=== PATIENT | female | born 1995 ===

== ENCOUNTER 2023-06-15 07:05 | Inpatient (IN) ==
[2023-06-15] MEDS ORDERED: Nalbuphine 10 MG/ML 1 ML VIAL IV PRN (08:22)
[2023-06-15] MEDS ORDERED: Lidocaine 1% VIAL 10 MG/ML 30 ML VIAL INJ PRN (08:22)
[2023-06-15] MEDS ORDERED: Prochlorperazine 5 mg/ml 2 ml VIAL (10 mg) IV PRN (08:22)
[2023-06-15] MEDS ORDERED: Oxytocin in LR 20,000 MILLI.UNIT/1,000 ML BAG IV SCH (08:25)
[2023-06-15 09:20] LABS: Urine Benzodiazepine Screen None Detected (None Detect); Urine Cannabinoids Screen None Detected (None Detect); Urine Opiates Screen None Detected (None Detect)
[2023-06-15 12:03] LABS: ABS Lymphocytes 1.7 10^3/uL (1.0-4.8); ABS Monocytes 0.6 10^3/uL (0.0-0.9); ABS Neutrophils 11.4 10^3/uL (1.5-7.6); ABS Nucleated RBC 0.01 10^3/ul; Eosinophil % 0.1 %; Hematocrit 40.4 % (35-45); Hemoglobin 13.7 g/dL (11.5-14.3); Lymphocyte % 12.6 %; Mean Corpuscular Hemoglobin 29.7 pg (27-33); Mean Corpuscular Volume 87.2 fL (80-97); Mean Platelet Volume 8.8 fL (7.5-11.2); Platelet Count 207 10^3/uL (150-450); Red Blood Count 4.63 10^6/uL (3.63-4.92); Red Cell Distribution Width 14.7 % (12-17); White Blood Count 13.8 10^3/uL (3.8-11.8)
[2023-06-15 13:07] LABS: HIV 4th Generation Nonreactive (Nonreactive)
[2023-06-15] MEDS: Lactated Ringers 1000 ml BAG 1,000 ML IV ONE (13:32)
[2023-06-15] MEDS: Oxytocin in LR 20,000 MILLI.UNIT/1,000 ML BAG IV SCH (23:38)
[2023-06-16] MEDS ORDERED: Glycerin ADULT 2.4 gm SUPP PR PRN (00:21)
[2023-06-16] MEDS ORDERED: Lactated Ringers 1000 ml BAG 1,000 ML IV SCH (01:00)
[2023-06-16 11:44] LABS: ABS Basophils 0.1 10^3/uL (0.0-0.1); ABS Lymphocytes 2.2 10^3/uL (1.0-4.8); ABS Monocytes 0.8 10^3/uL (0.0-0.9); ABS Neutrophils 11.8 10^3/uL (1.5-7.6); ABS Nucleated RBC 0.01 10^3/ul; Eosinophil % 0.1 %; Hematocrit 35.7 % (35-45); Hemoglobin 12.3 g/dL (11.5-14.3); Mean Corpuscular Hemoglobin 30.2 pg (27-33); Mean Corpuscular Hgb Conc 34.6 g/dL (31-36); Mean Corpuscular Volume 87.4 fL (80-97); Mean Platelet Volume 8.9 fL (7.5-11.2); Platelet Count 182 10^3/uL (150-450); Red Blood Count 4.08 10^6/uL (3.63-4.92); Red Cell Distribution Width 14.8 % (12-17); White Blood Count 14.9 10^3/uL (3.8-11.8)
[2023-06-16] MEDS: Buffered Lidocaine 1% SYRIN 1 ml INTRADERM ONE (15:24)
[2023-06-16] MEDS: OBEPIDURAL (200 ML) 0 ML EPIDURAL ONE (15:25)
[2023-06-16] MEDS: Lactated Ringers 1000 ml BAG 1,000 ML IV SCH (15:25)
[2023-06-16] MEDS: Lidocaine 1.5% EPI 1:200,000 30 ML SDV ONE (15:25)
[2023-06-16] MEDS: fentaNYL 100 mcg/2 ml 50 MCG/ML VIAL ONE (15:25)
[2023-06-16] MEDS: Bupivacaine 0.25% SDV PF 10 ML VIAL INJ ONE (15:25)
[2023-06-16] MEDS: Lidocaine 2% JELLY 6 ML Topical TOPICAL ONE ×2 (15:26)
[2023-06-17 09:48] VITALS: BP 117/68
[2023-06-17] MEDS: Dibucaine 1% OINT 28.35 GM TUBE PR PRN (10:33)
[2023-06-17] MEDS: Witch Hazel PAD JAR TOPICAL PRN (10:33)
== END 2023-06-17 14:00 | disposition home or self-care (01) | DRG 560 ==
LOC: MCHOBOUT 07:05 → MCHOB 08:21
PROVIDERS: ADMIT Obstetrics & Gynecology; ATTEND Obstetrics & Gynecology